=== PATIENT | male | born 1995 | race Caucasian/White ===

== ENCOUNTER 2017-01-05 17:38 | Inpatient (IN) | payer OTHER ==
[2017-01-05 19:35] LABS: Hematocrit 42 % (42-52); Hemoglobin 14.6 g/dl (14.0-18.0); Mean Corpuscular HGB Conc 35 g/dl (31-36); Mean Corpuscular Hemoglobin 29 pg (27-31); Mean Corpuscular Volume 85 fL (80-94); Mean Platelet Volume 9 um3 (7.4-10.4); Red Blood Count 4.97 10^6/ul (4.0-5.4); Red Cell Distribution Width 13 % (10.5-15); White Blood Count 9.3 10^3/ul (3.5-10.8)
[2017-01-05 19:42] LABS: Urine Bilirubin Negative (Negative); Urine Glucose Negative (Negative); Urine Nitrite Negative (Negative)
[2017-01-05 19:45] LABS: ALT 9 U/L (7-52); AST 14 U/L (13-39); Albumin 4.6 g/dL (3.2-5.2); Alkaline Phosphatase 44 U/L (34-104); Anion Gap 4 mmol/L (2-11); BUN/Creatinine Ratio 13.3 (8-20); Blood Urea Nitrogen 12 mg/dL (6-24); CO2 Carbon Dioxide 30 mmol/L (22-32); Calcium 9.3 mg/dL (8.6-10.3); Chloride 105 mmol/L (101-111); EGFR African American 138.4 (>60); EGFR Non-African American 107.6 (>60); Globulin 2.9 g/dL (2-4); Glucose 72 mg/dL (70-100); Sodium 139 mmol/L (133-145); Total Protein 7.5 g/dL (6.4-8.9)
[2017-01-05 19:48] LABS: Acetaminophen < 15 mcg/mL; Alcohol < 10 mg/dL (<10); Salicylate < 2.50 mg/dL (<30)
[2017-01-05 19:49] LABS: Benzodiazepine Urine Screen None Detected (None Detect)
[2017-01-05 20:03] LABS: TSH (Thyroid Stimulating Horm) 1.45 mcIU/mL (0.34-5.60)
[2017-01-05] MEDS ORDERED: LORazepam TAB(*) 1 MG PO ONE (20:59)
--- NOTE | 2017-01-05 21:01 | ED ---
Progress - Progress Note Progress Note: 21:00 01/05/17, received pt in sign out from Dr. Albarran at change of shift, pending MHE. Pt with depression, SI. Pt states he doesn't want to be here, but he came to get help. Asks for his book, "the Gift". Security will get it for pt. Pt reluctantly accepts a pill, Ativan 1mg po, to help him cope while here. 21:25 medically clear for MHE. 0125: Per Joe MH examiner, per Dr. Guaman, pt is to be admitted voluntarily. Hold in Flex unit, pending [facility] admit in am. 0300: care to Dr. Weathers at change of shift. Course/Dx - Course Course Of Treatment: given ativan 1mg po x 1 while still in ED. Calm cooperative while in Flex unit. Per Joe, per Dr. Guaman, admit voluntarily. Awaiting [facility] bed. - Diagnoses Provider Diagnoses: Suicidal ideation, Depression
[2017-01-06] MEDS ORDERED: BuPROPion XL* 150 MG TAB.XL PO ONE (10:32)
[2017-01-06] MEDS ORDERED: Al Hydrox/Mg Hydrox/Simet LIQ* 30 ML UDC PO PRN (16:40)
[2017-01-06] MEDS ORDERED: Acetaminophen TAB* 325 MG PO PRN (16:40)
--- NOTE | 2017-01-06 19:07 | ED ---
Em Echeverria Thomas, scribed for Vitaly Albarran MD on 01/05/17 at 1935 . Psychiatric Complaint - HPI Summary HPI Summary: The pt is a 21 y/o M referred to the ED by Micheline Lawrence NP and c/o depression and SI. These feelings are intermittent. He says he has been depressed for years but has been especially depressed this year. There are no known aggravating factors, alleviating factors, or recent stressors. He c/o excessive sleeping and decreased appetite. He denies HI and prior suicide attempts. He began taking depression medication four weeks ago. - History Of Current Complaint Chief Complaint: EDMentalHealth Time Seen by Provider: 01/05/17 18:18 Hx Obtained From: Patient Onset/Duration: Lasting Weeks - depression, SI for years, Still Present, Worse Since - depression worse in the last year Timing: Intermittent Episode Lasting Character: Depressed Aggravating Factor(s): Nothing Alleviating Factor(s): Nothing Associated Signs And Symptoms: Positive: Sleep Disturbance, Appetite Change Has Suicidal: Reports: Thoughts. Denies: Has Prior Attempt(s) Has Homicidal: Denies: Thoughts PMH/Surg Hx/FS Hx/Imm Hx Previously Healthy: No Endocrine/Hematology History: Denies: Hx Diabetes Psychiatric History: Reports: Hx Depression - Surgical History Surgery Procedure, Year, and Place: dental surgery Infectious Disease History: No Infectious Disease History: Denies: Traveled Outside the [place] in Last 30 Days - Family History Known Family History: Positive: Other - Mental illness - Social History Occupation: Student Lives: Dormitory/Roommates Alcohol Use: Weekly Hx Tobacco Use: Yes Smoking Status (MU): Current Every Day Smoker Review of Systems Negative: Fever Psychological: Other - SI, excessive sleeping, decreased appetite; NEGATIVE: HI Positive: Depressed All Other Systems Reviewed And Are Negative: Yes Physical Exam - Summary Physical Exam Summary: VITAL SIGNS: Reviewed. GENERAL: Patient is a well-developed and nourished male who is lying comfortable in the stretcher. Patient is not in any acute respiratory distress. HEAD AND FACE: No signs of trauma. No ecchymosis, hematomas or skull depressions. No sinus tenderness. EYES: PERRLA, EOMI x 2, No injected conjunctiva, no nystagmus. EARS: Hearing grossly intact. Ear canals and tympanic membranes are within normal limits. MOUTH: Oropharynx within normal limits. NECK: Supple, trachea is midline, no adenopathy, no JVD, no carotid bruit, no c- spine tenderness, neck with full ROM. CHEST: Symmetric, no tenderness at palpation LUNGS: Clear to auscultation bilaterally. No wheezing or crackles. CVS: Regular rate and rhythm, S1 and S2 present, no murmurs or gallops appreciated. ABDOMEN: Soft, non-tender. No signs of distention. No rebound no guarding, and no masses palpated. Bowel sounds are normal. EXTREMITIES: FROM in all major joints, no edema, no cyanosis or clubbing. NEURO: Alert and oriented x 3. No acute neurological deficits. Speech is normal and follows commands. SKIN: Dry and warm PSYCH: He has suicidal ideation. Depressed, quiet. No homicidal thoughts or plan. No signs of psychosis or pressure speech. No tangential speech. Triage Information Reviewed: Yes Vital Signs On Initial Exam: Initial Vitals Temp Pulse Resp BP Pulse Ox 98.1 F 57 20 119/66 99 01/05/17 18:06 01/05/17 18:06 01/05/17 18:06 01/05/17 18:06 01/05/17 18:06 Vital Signs Reviewed: Yes Diagnostics - Vital Signs Vital Signs Temp Pulse Resp BP Pulse Ox 01/05/17 18:06 98.1 F 57 20 119/66 99 - Laboratory Lab Results: Lab Results 01/05/17 01/05/17 01/05/17 Range/Units 18:25 18:25 19:00 WBC (3.5-10.8) 10^3/ul RBC (4.0-5.4) 10^6/ul Hgb (14.0-18.0) g/dl Hct (42-52) % MCV (80-94) fL MCH (27-31) pg MCHC (31-36) g/dl RDW (10.5-15) % Plt Count (150-450) 10^3/ul MPV (7.4-10.4) um3 Neut % (Auto) (38-83) % Lymph % (Auto) (25-47) % [place] % (Auto) (1-9) % Eos % (Auto) (0-6) % Baso % (Auto) (0-2) % Absolute Neuts (auto) (1.5-7.7) 10^3/ul Absolute Lymphs (auto) (1.0-4.8) 10^3/ul Absolute Monos (auto) (0-0.8) 10^3/ul Absolute Eos (auto) (0-0.6) 10^3/ul Absolute Basos (auto) (0-0.2) 10^3/ul Absolute Nucleated RBC 10^3/ul Nucleated RBC % Sodium 139 (133-145) mmol/L Potassium 4.0 (3.5-5.0) mmol/L Chloride 105 (101-111) mmol/L Carbon Dioxide 30 (22-32) mmol/L Anion Gap 4 (2-11) mmol/L BUN 12 (6-24) mg/dL Creatinine 0.90 (0.67-1.17) mg/dL Est GFR ( Amer) 138.4 (>60) Est GFR (Non-Af Amer) 107.6 (>60) BUN/Creatinine Ratio 13.3 (8-20) Glucose 72 (70-100) mg/dL Calcium 9.3 (8.6-10.3) mg/dL Total Bilirubin 0.40 (0.2-1.0) mg/dL AST 14 (13-39) U/L ALT 9 (7-52) U/L Alkaline Phosphatase 44 (34-104) U/L Total Protein 7.5 (6.4-8.9) g/dL Albumin 4.6 (3.2-5.2) g/dL Globulin 2.9 (2-4) g/dL Albumin/Globulin Ratio 1.6 (1-3) TSH 1.45 (0.34-5.60) mcIU/mL Urine Color Yellow Urine Appearance Cloudy Urine pH 7.0 (5-9) Ur Specific [place] 1.013 (1.010-1.030) Urine Protein Negative (Negative) Urine Ketones Negative (Negative) Urine Blood Negative (Negative) Urine Nitrate Negative (Negative) Urine Bilirubin Negative (Negative) Urine Urobilinogen Negative (Negative) Ur Leukocyte Esterase Negative (Negative) Urine Glucose Negative (Negative) Salicylates < 2.50 (<30) mg/dL Urine Opiates Screen None detected (None Detect) Acetaminophen < 15 mcg/mL Ur Barbiturates Screen None detected (None Detect) Ur Phencyclidine Scrn None detected (None Detect) Ur Amphetamines Screen None detected (None Detect) U Benzodiazepines Scrn None detected (None Detect) Urine Cocaine Screen None detected (None Detect) U Cannabinoids Screen Presumptive positive H (None Detect) Serum Alcohol < 10 (<10) mg/dL 01/05/17 Range/Units 19:00 WBC 9.3 (3.5-10.8) 10^3/ul RBC 4.97 (4.0-5.4) 10^6/ul Hgb 14.6 (14.0-18.0) g/dl Hct 42 (42-52) % MCV 85 (80-94) fL MCH 29 (27-31) pg MCHC 35 (31-36) g/dl RDW 13 (10.5-15) % Plt Count 203 (150-450) 10^3/ul MPV 9 (7.4-10.4) um3 Neut % (Auto) 67.5 (38-83) % Lymph % (Auto) 23.8 L (25-47) % [place] % (Auto) 6.9 (1-9) % Eos % (Auto) 1.4 (0-6) % Baso % (Auto) 0.4 (0-2) % Absolute Neuts (auto) 6.3 (1.5-7.7) 10^3/ul Absolute Lymphs (auto) 2.2 (1.0-4.8) 10^3/ul Absolute Monos (auto) 0.6 (0-0.8) 10^3/ul Absolute Eos (auto) 0.1 (0-0.6) 10^3/ul Absolute Basos (auto) 0 (0-0.2) 10^3/ul Absolute Nucleated RBC 0 10^3/ul Nucleated RBC % 0 Sodium (133-145) mmol/L Potassium (3.5-5.0) mmol/L Chloride (101-111) mmol/L Carbon Dioxide (22-32) mmol/L Anion Gap (2-11) mmol/L BUN (6-24) mg/dL Creatinine (0.67-1.17) mg/dL Est GFR ( Amer) (>60) Est GFR (Non-Af Amer) (>60) BUN/Creatinine Ratio (8-20) Glucose (70-100) mg/dL Calcium (8.6-10.3) mg/dL Total Bilirubin (0.2-1.0) mg/dL AST (13-39) U/L ALT (7-52) U/L Alkaline Phosphatase (34-104) U/L Total Protein (6.4-8.9) g/dL Albumin (3.2-5.2) g/dL Globulin (2-4) g/dL Albumin/Globulin Ratio (1-3) TSH (0.34-5.60) mcIU/mL Urine Color Urine Appearance Urine pH (5-9) Ur Specific [place] (1.010-1.030) Urine Protein (Negative) Urine Ketones (Negative) Urine Blood (Negative) Urine Nitrate (Negative) Urine Bilirubin (Negative) Urine Urobilinogen (Negative) Ur Leukocyte Esterase (Negative) Urine Glucose (Negative) Salicylates (<30) mg/dL Urine Opiates Screen (None Detect) Acetaminophen mcg/mL Ur Barbiturates Screen (None Detect) Ur Phencyclidine Scrn (None Detect) Ur Amphetamines Screen (None Detect) U Benzodiazepines Scrn (None Detect) Urine Cocaine Screen (None Detect) U Cannabinoids Screen (None Detect) Serum Alcohol (<10) mg/dL Result Diagrams: 01/05/17 19:00 01/05/17 19:00 Lab Statement: Any lab studies that have been ordered have been reviewed, and results considered in the medical decision making process. Course/Dx - Course Assessment/Plan: The pt is a 21 y/o M referred to the ED by Micheline Lawrence NP and c/o depression and SI. These feelings are intermittent. He says he has been depressed for years but has been especially depressed this year. There are no known aggravating factors, alleviating factors, or recent stressors. He c/o excessive sleeping and decreased appetite. He denies HI and prior suicide attempts. He began taking depression medication four weeks ago. Test results are without significant abnormalities. The patient is medically cleared. The patient is awaiting a mental health examination. - Differential Dx/Clinical Impression Differential Diagnosis/HQI/PQRI: Positive: Anxiety, Depression, Suicidal Ideation Provider Diagnosis: Depressive disorder, unspecified Discharge - Discharge Plan Condition: Fair Disposition: OTHER Discharge Disposition Comment: Sign out at shift change pending MHE and awaiting dispo. The documentation as recorded by the Em dudley Thomas accurately reflects the service I personally performed and the decisions made by me, Vitaly Albarran MD.
--- NOTE | 2017-01-06 19:08 | ED ---
Blaise Echeverria Angela, scribed for Vitaly Albarran MD on 01/06/17 at 1816 . Progress - Progress Note Progress Note: Pt was signed out at shift change, pending disposition. Pt will be admitted per Dr. Villarreal's recommendation in stable condition with a diagnosis of depressive disorder, unspecified. Course/Dx - Diagnoses Provider Diagnoses: Depressive disorder, unspecified The documentation as recorded by the lakshmiibBlaise payan Angela accurately reflects the service I personally performed and the decisions made by , Vitaly Albarran MD.
[2017-01-07] MEDS ORDERED: BuPROPion XL* 150 MG TAB.XL PO SCH (09:00)
[2017-01-07] MEDS: Divalproex DR TAB(*) 250 MG PO SCH (20:13)
--- NOTE | 2017-01-07 20:30 | HP ---
PSYCHIATRIC HISTORY AND PHYSICAL: DATE OF ADMISSION: 01/06/17 JUSTIFICATION FOR ADMISSION: The patient is in need of 24-hour supervision and care secondary to suicidal ideations. CHIEF COMPLAINT: "I think it is a chemical imbalance." HISTORY OF PRESENT ILLNESS: The patient is a 21-year-old single white male, [employer] senior, with a recent diagnosis of depression, who arrived voluntarily following an appointment with his psychiatric nurse practitioner, Micheline Lawrence, who presented with plans to hang himself and just poison or jump off a bridge. He indicated that he does not see a way out of difficulties and feels hopeless. He was irritable with small outbursts of yelling based on his belief that there was nothing that could be done to relieve his depression. The patient feels that he was forced to take an oral dose of Ativan in the emergency room based on his behavior and was somewhat upset about it. I was able to reach his mother whose name is Iraida Caruso and she indicates that for years, she has seen him as going up and down, being depressed at times, but also being apparently hypomanic taking on extra projects, being euphoric, doing impulsive things like hitchhiking around the country. She was concerned about his behavior because they have family friend who was receiving bizarre texts from him all night. When I met with the patient, he does endorse a history of mood instability including irritability, distractibility, indiscreet behaviors, grandiosity, flight of ideas, increased goal directed activities, decreased need for sleep, and overtalkativeness. He states that the suicidal ideations were just exaggerations meant to jog his feelings and make him feel better. He denies any past history of psychosis. PAST PSYCHIATRIC HISTORY: The patient is new to mental health treatment. In October of 2016, he begun seeing a therapist in the community named, Ronen Verdugo. He was then referred to psychiatric nurse practitioner, Micheline Lawrence, who started treating him with Wellbutrin XL 150 mg daily for a diagnosis of depression. His mother does indicate that he had an explosive temperament as a child, but the only therapy he received was through a family therapist for anger management. He has no formal history of violence towards others, although he tends to be irritable and to raise his voice. His family is not aware of any abuse or neglect and the patient denies these. He has no formal history of traumatic brain injury. SUBSTANCE ABUSE HISTORY: The patient smokes cannabis daily and has since high school. He uses this to modulate his moods and also uses large amounts of daily caffeine for the same effect. He denies alcohol use. He has used hallucinogens such as LSD and mushrooms between 15 and 20 times in his life. He does smoke tobacco, a quarter pack a day, which he states is an example of his impulsivity. PAST MEDICAL HISTORY: Noncontributory. CURRENT MEDICATIONS: Include bupropion XL 150 mg p.o. q.a.m. ALLERGIES: He has no known drug allergies. FAMILY HISTORY: He has a maternal uncle with bipolar disorder and anxiety. He also has a paternal uncle with schizophrenia, who was on lithium for a number of years. SOCIAL HISTORY: The patient was born and raised in [place] to an intact family of which he is the youngest of 3 children. He has an older sister and an older brother. Currently, he is a senior at [employer] majoring in [employer] where he states his grades are adequate. He is currently single, heterosexual, not sexually active. He has no history of sexually transmitted diseases. He is a full- time student, who is financially dependent on his parents. He has no formal legal history. No history of service. Recreationally, he enjoys playing music on the piano. He is spiritual but only during his "up phases." REVIEW OF SYSTEMS: The patient denies double vision or headache. He denies abdominal pain, nausea, vomiting, diarrhea, or constipation. He denies difficulty breathing, chest pain, shortness of breath, cough, or sore throat. He denies difficulty ambulating, enlarged lymph nodes, changes in weight. PHYSICAL EXAMINATION VITAL SIGNS: Blood pressure 118/67, heart rate 47, respiratory rate 16, temperature is 97.7 degrees Fahrenheit, and oxygen saturations are 100% on room air. HEENT: Head is normocephalic, atraumatic. NECK: Supple. CHEST: Clear to auscultation bilaterally. CARDIAC: Reveals normal heart sounds. ABDOMEN: Soft and nontender. MUSCULOSKELETAL: Reveals no sign of edema. NEUROLOGICAL: He is grossly intact with no focal deficits. MENTAL STATUS EXAMINATION: The patient is a young, tall, slender, white male, slightly bearded, wearing eye glasses. He is dressed in a somewhat unusual style with bright colorful hoodie. He has good eye contact, somewhat pressured speech. He is calm, cooperative with some weakness in boundaries as evidenced by his playing the piano at times during our interview in the comfort room. Mood appears to be irritable with a constricted affect. Thought process is linear and goal directed. Thought content is significant for his feeling that things will not improve. He denies suicidal or homicidal ideations currently. He denies auditory or visual hallucinations. Insight and judgment are limited given his preference to be treated on an outpatient basis. Cognitively, he is awake and alert with what would appear to be an average intellect. LABORATORY DATA: As follows: CBC, CMP, and urinalysis are all within normal limits. Urine drug screen is positive only for cannabinoids. DIAGNOSES: As follows: [place] I: Bipolar disorder, type 1, most recent episode depressed, severe without psychotic features; cannabis use disorder. [place] II: Deferred. [place] III : None. [place] IV: Moderate academic stressors. [place] V: At this time is 35. IMPRESSION: The patient is a 21-year-old single white male, [employer] senior, with a recent diagnosis of depression, who arrived on the advice of his psychiatrist nurse practitioner after he made suicidal statements in her office , specifically he had made statements regarding jumping off a bridge, poisoning himself, or overdosing on medications. I do feel that his history is significant for bipolar disorder and I think discontinuation of antidepressants would be warranted with consideration for mood stabilizer therapy. PLAN: The patient is admitted to the adult behavioral health unit where he was placed on q.15-minute checks for his own safety. We will discontinue Wellbutrin and replace it with a trial of Depakote 250 mg p.o. b.i.d. After 2-1 /2 days, we can check a level and consider increasing the dose if necessary. We will try to hook him up with new providers as he is telling me that he no longer wants to see his current therapist or psychiatric nurse practitioner. While he is here, he is certainly encouraged to avail himself of all milieu activities including individual and group psychotherapies. [id number]/[facility] #: [id number] REGI
[2017-01-08] MEDS: Divalproex DR TAB(*) 250 MG PO SCH (08:29)
--- NOTE | 2017-01-08 11:59 | PN ---
MHU: Group Therapy Note - Service Type Service Type: 63229 Group Psychotherapy - Cognitive Behavioral Group Therapy ( CBT):Patient was attentive and participatory in CBT programming this morning, and remained in good behavioral control. Patient expressed positive insights regarding relevant treatment interventions and goals.
--- NOTE | 2017-01-08 17:39 | PN ---
Subjective - Subjective Service Type: 20157 Hosp care 15 min low complexity Subjective: Patient denies SI. No side effects from the introduction of Depakote. Patient insists that his suicidal ideations and statements were only to shock himself out of how he was feeling. Less depressed today. Slept well. Hopeful for d/c to home Wednesday and wants to finish his and then get his degree after spring. Agreeable with outpatient treatment after discharge. Ambivalent about abstaining from cannabis. Objective - Appearance Appearance: Thin Framed Dysmorphic Features: No Hygiene: Normal Grooming: Fairly Well Kept - Behavior Psychomotor Activities: Normal Exhibits Abnormal Movement: No - Attitude and Relatedness Attitude and Relatedness: Cooperative Eye Contact: Fair - Speech Quality: Unpressured Latencies: Normal Quantity: Appropriate - Mood Patient's Decription of Mood: "Okay" - Affect Observed Affect: Expansive Affect Consistent with: Euthymia - Thought Process Patient's Thought Process: Coherent Thought Content: No Passive Wish, No Suicidal Planning, No Homicidal Ideation, No Paranoid Ideation - Sensorium Experiencing Hallucinations: No, Sensorium is Clear Type of Hallucinations: Visual: No, Auditory: No, Command: No - Level of Consciousness Level of Consciousness: Alert Orientation: Yes Intact, Yes Orientated to Time, Yes Orientated to Place, Yes Orientated to Person - Impulse Control Impulse Control: Tenuous - Insight and Judgement Insight and Judgement: Fair - Group Participation Particating in Group Activities: Yes - Medication Management Medication Management Adherence: Yes Assessment - Assessment Merits Inpatient Hospitalization: For Immediate Safety, For Stabilization Inpatient DSM-IV Dx: Bipolar Depression, severe without psychotic features Clinical Impression: 21 y.o. 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 Plan - Plan Treatment Plan: Name: SARI MCINTYRE Birthdate: 1995 [id number] We have discontinued bupropion XL in favor of a trial of Depakote 250mg PO BID. Will increase dose to 250mg PO qam and 500mg PO qhs. VPA level on Wednesday. Continue to treat on inpatient basis. Continued Medication Management: Start Medication Medications: Current Medications Acetaminophen (Tylenol Tab*) 650 mg PO Q4H PRN PRN Reason: for pain; or Temp >101 F Al Hydrox/Mg Hydrox/Simethicone (Maalox Plus*) 30 ml PO Q4H PRN PRN Reason: INDIGESTION Divalproex Sodium (Depakote Dr Tab(*)) 500 mg PO BEDTIME MARILU Divalproex Sodium (Depakote Dr Tab(*)) 250 mg PO DAILY MARILU - Discharge Plan Discharge Plan: Inpatient Hospitalization
[2017-01-08] MEDS: Divalproex DR TAB(*) 500 MG PO SCH (20:51)
[2017-01-09] MEDS: Divalproex DR TAB(*) 250 MG PO SCH (08:44)
[2017-01-09] MEDS: Divalproex DR TAB(*) 500 MG PO SCH (20:47)
[2017-01-10] MEDS: Divalproex DR TAB(*) 250 MG PO SCH (09:17)
--- NOTE | 2017-01-10 11:01 | PN ---
Subjective - Subjective Service Type: 77336 Hosp care 15 min low complexity Subjective: Dennis continues to deny SI and is upset about coming to the hospital in the first place. "I feel like from now on I'm going to have to watch what I say, because if I'm at all honest they're going to call the police and have me brought back here. I don't want to come here ever again." The patient complains of boredom and lack of meaningful therapeutic experiences on the unit. He also complains of mild sedation from Depakote and wonders if he can take it all at night. VPA level is pending for the AM. Objective - Appearance Appearance: Well Developed/Nourished, Thin Framed Dysmorphic Features: No Hygiene: Normal Grooming: Well Kept - Behavior Psychomotor Activities: Normal Exhibits Abnormal Movement: No - Attitude and Relatedness Attitude and Relatedness: Dismissive Eye Contact: Good - Speech Quality: Unpressured Latencies: Normal Quantity: Appropriate - Mood Patient's Decription of Mood: "Fine" - Affect Observed Affect: Fair Affect Consistent with: Euthymia - Thought Process Patient's Thought Process: Coherent Thought Content: No Passive Wish, No Suicidal Planning, No Homicidal Ideation, No Paranoid Ideation - Sensorium Experiencing Hallucinations: No, Sensorium is Clear Type of Hallucinations: Visual: No, Auditory: No, Command: No - Level of Consciousness Level of Consciousness: Alert Orientation: Yes Intact, Yes Orientated to Time, Yes Orientated to Place, Yes Orientated to Person - Impulse Control Impulse Control: Intact - Insight and Judgement Insight and Judgement: Good - Group Participation Particating in Group Activities: Yes - Medication Management Medication Management Adherence: Yes Assessment - Assessment Merits Inpatient Hospitalization: Consolidate Improvements, Pending Safe DC Plan Inpatient DSM-IV Dx: Bipolar Depression, severe without psychotic features Clinical Impression: 21 y.o. 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 with a history of episodic mood instability arrives voluntarily from his outpatient psychiatric nurse practitioner's office due to depressed mood and suicidal ideations with multiple stated plans. Plan - Plan Treatment Plan: Name: DENNIS MCINTYRE Birthdate: 1995 [id number] We have discontinued bupropion XL in favor of a trial of Depakote 250mg PO qam and 500mg PO qhs. Will change dose to 750mg PO qhs to minimize daytome sedation. VPA level tomorrow followed by likely discharge to home. Continued Medication Management: Start Medication Medications: Current Medications Acetaminophen (Tylenol Tab*) 650 mg PO Q4H PRN PRN Reason: for pain; or Temp >101 F Al Hydrox/Mg Hydrox/Simethicone (Maalox Plus*) 30 ml PO Q4H PRN PRN Reason: INDIGESTION Divalproex Sodium (Depakote Dr Tab(*)) 500 mg PO BEDTIME MARILU Last Admin: 01/09/17 20:47 Dose: 500 mg Divalproex Sodium (Depakote Dr Tab(*)) 250 mg PO BEDTIME MARILU - Discharge Plan Discharge Plan: Outpatient Follow Up Outpatient Program: Micheline YU
[2017-01-10] MEDS: Divalproex DR TAB(*) 500 MG PO SCH (20:31)
[2017-01-11 08:37] VITALS: BP 115/95
[2017-01-11] MEDS ORDERED: Divalproex DR TAB(*) 250 MG PO SCH (21:00)
--- NOTE | 2017-01-12 03:36 | DS ---
DISCHARGE SUMMARY: DATE OF ADMISSION: 01/06/17 DATE OF DISCHARGE: 01/11/17 DISCHARGE DIAGNOSES: Are as follows: Alex I: Bipolar disorder type 1; most recent episode depressed, severe without psychotic features; cannabis use disorder. Alex II: Deferred. Alex III: None. Alex IV: Moderate academic stressors. Alex V: At the time of admission was 36 and at the time of discharge is 61. CONDITION AT THE TIME OF DISCHARGE: Improved. The patient's affect is full. His mood is euthymic. He has been present in the milieu setting, socializing with peers, playing his guitar and entertai darlyn others. He has been going to groups. 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 I have spoken with his parents, his Father, Ab Jacobsen, and his mother, Iraida hall, who indicate that he appears back to his baseline and they feel good about the discharge plan and in fact they are willing to come this afternoon to pick him up to bring him back to college. T he patient has been safe on all checks. He has denied suicidal ideations since the time of his [facility] appointment and he is willing to follow up with his outpatient psychiatric provider who is psychi atric nurse practitioner, Micheline Lawrence. MENTAL STATUS EXAMINATION: The patient is a tall, young, slender white male, slightly bearded, wear ing eye glasses. He is dressed in a somewhat unusual style with a bright colorful hoodie. Makes go od eye contact. Speech has a normal rate, tone, and volume. He is calm, cooperative. Mood is euth ymic with full affect. Thought process is linear and goal directed. Thought content is significant for his desire to leave the hospital and return to college. He denied suicidal or homicidal ideatio ns. He denies auditory or visual hallucinations. Insight and judgement are fair given his willingn ess to follow up with outpatient mental health treatment. Cognitively, he is awake and alert with w hat would appear to be an average intellect. DISCHARGE INSTRUCTIONS: To the patient are as follows: A. Medications: He is on Depakote 750 mg p.o. q.h.s. B. Diet is regular. C. Activities: As tolerated. The patient is a nonsmoker. There are no laboratory or diagnostic s tudies pending at the time of discharge. D. Followup care: The patient will follow up with outpatient psychiatric nurse practitioner, Yoana Lawrence within 1 week of discharge. HOSPITAL COURSE: Part A: Reason for hospitalization: The patient is a 21-year-old single white [facility] [employer] [facility], [employer] Senior with a recent diagnosis of depression, who arrived voluntarily following an appointment with his psychiatric nurse practitioner, Micheline Lawrence, who presented with plans to hang himself or poison himself or jump off of bridge. He indicated that he does not see a way out of hi s difficulties and feels hopeless. He was irritable with small outburst of yelling based on his bel ief that there was nothing that could be done to relieve his depression. The patient feels that he was forced to take an oral dose of Ativan in the emergency room based on his behavior and was somewh at upset about that. I was able to reach his mother whose name is Iraida Caruso, and she indicated th at for years she has seen him as going up and down in terms of his mood being depressed at times, bu t also being apparently hypomanic, taking on extra projects, being euphoric, doing impulsive things such as hitchhiking around the country. She was concerned about his behavior because they have a fa ronnie friend who was receiving bizarre texts from him at strange hours. When I met with the patient, he did endorse a history of mood instability including irritability, distractibility, indiscreet be haviors, grandiosity, flight of ideas, increased goal directed activities, decreased need for sleep, over talkativeness. He stated that the suicidal ideations were "just exaggerations" meant to jog h is feelings and make him feel better. He denied any past history of psychosis. Part B: Psychiatric treatment rendered: The patient was admitted to the [facility] where he was placed on q.15 minute checks for his own safety. I was able to reach his mother who gave me further collateral information as well as Micheline Lawrence, his outpatient psychiatric nurse pr actitioner who similarly filled me in on the details, which led to this hospitalization. We were ab le to determine that his diagnosis was bipolar disorder and we opted with the consent of the patient to pursue a trial of Depakote initially at 250 mg twice daily, then 250 in the morning and 500 at n ight. The patient did tolerate this well; however, he had some complaints of daytime sedation and t herefore, we moved his dose to receiving all 750 mg at nighttime. On the morning of discharge, his valproic acid level was deemed to be therapeutic at 66. At times, Dennis seemed to be slightly argume ntative and argued against the course of nature of this hospitalization, feeling that even though he arrived here voluntarily, if he had not, the police would have brought him in. He seemed to take i ssue with what he perceived as coercion in terms of coming to inpatient treatment. In spite of this , he did accept medications and did seem to understand the rationale of his diagnosis as well as his treatment plan. He was cooperative in the milieu, went to groups, was often seeing playing guitar and socializing with peers. It is notable that we tried to refer him to the enterprise architect manager at [facility]; however, he declined this saying that he would speak to his professors himself. He also declined followup referral to a new psychotherapist indicating that he felt that psychotherapy would have limited benefit to him. The patient's affect did improve during this hospitalization and he i s appropriately requesting discharge at this time. We feel that there would be limited utility in c ontinued inpatient care and I have spoken with both the patient and Micheline Lawrence and they are mutual ly in favor of continuing their treatment relationship at this time. The patient is denying suicida l ideations and we feel that he is safe for discharge at this time. [id number]/[facility] #: [id number]
== END 2017-01-11 13:00 | disposition home or self-care (01) | DRG 753 ==
LOC: ED 17:38 → BSU 01-06 18:06
PROVIDERS: ADMIT Psychiatry & Neurology Psychiatry; ATTEND Psychiatry & Neurology Psychiatry
DX: F31.4 Bipolar disorder, current episode depressed, severe, without psychotic features (principal); R45.851 Suicidal ideations; F12.10 Cannabis abuse, uncomplicated; Z79.899 Other long term (current) drug therapy; Z81.8 Family history of other mental and behavioral disorders
CPT/HCPCS: 36415; 80053; 80164; 80307; 80320; 80329; 81003; 84443; 85025; 90853; 99222; 99231; 99238; A9270-GY; G0480

== ENCOUNTER 2017-05-04 13:22 | Emergency (ER) | payer OTHER ==
--- NOTE | 2017-05-04 15:44 | ED ---
Throat Pain/Nasal Congestion - HPI Summary HPI Summary: 22-year-old male presents with sore throat for past day. His girlfriend diagnosis strep. He admits to occasional fevers. He admits to dry cough. He denies any nausea or vomiting. He denies any abdominal pain. He hasn't taken anything for his pain. He has a history of strep. He denies any muscle aches. - History of Current Complaint Chief Complaint: EDThroatPain Time Seen by Provider: 05/04/17 15:43 - Allergies/Home Medications Allergies/Adverse Reactions: Allergies Allergy/AdvReac Type Severity Reaction Status Date / Time MS No Known Drug Allergy Allergy n/a Verified 01/07/17 11:13 [No Known Drug Allergy] PMH/Surg Hx/FS Hx/Imm Hx Endocrine/Hematology History: Denies: Hx Diabetes Cardiovascular History: Denies: Hx Hypertension Sensory History: Reports: Hx Contacts or Glasses - Nearsighted and stigmatism Denies: Hx Hearing Aid Opthamlomology History: Reports: Hx Contacts or Glasses - Nearsighted and stigmatism Psychiatric History: Reports: Hx Depression, Hx Community Mental Health Tx, Hx Bipolar Disorder, Hx Suicide Attempt, Hx Substance Abuse - Canabis, Acid - per pt - Surgical History Surgery Procedure, Year, and Place: dental surgery Infectious Disease History: No Infectious Disease History: Denies: Traveled Outside the [place] in Last 30 Days - Family History Known Family History: Positive: Other - Mental illness - Social History Alcohol Use: Rare Substance Use Type: Reports: Excessive Caffeine, Marijuana, Other Substance Use Comment - Amount & Last Used: "coffee and canabis daily" and "a lot of acid over a few years" Hx Tobacco Use: Yes Smoking Status (MU): Light Every Day Tobacco Smoker Type: Cigarettes Length of Time of Smoking/Using Tobacco: 6 months Have You Smoked in the Last Year: Yes Review of Systems Negative: Fever Positive: Sore Throat Negative: Chest Pain Positive: Cough. Negative: Shortness Of Breath All Other Systems Reviewed And Are Negative: Yes Physical Exam Triage Information Reviewed: Yes Vital Signs On Initial Exam: Initial Vitals Temp Pulse Resp BP Pulse Ox 98.3 F 59 15 134/59 100 05/04/17 13:44 05/04/17 13:44 05/04/17 13:44 05/04/17 13:44 05/04/17 13:44 Vital Signs Reviewed: Yes Appearance: Positive: Well-Appearing Skin: Positive: Warm, Dry Head/Face: Positive: Normal Head/Face Inspection Eyes: Positive: Normal, EOMI, SADIQ, Conjunctiva Clear ENT: Positive: Pharyngeal erythema, Tonsillar swelling, Uvula midline, Other - soft palate symmetric. Negative: Tonsillar exudate, Trismus, Muffled voice Respiratory/Lung Sounds: Positive: Clear to Auscultation, Breath Sounds Present Cardiovascular: Positive: Normal, RRR Abdomen Description: Positive: Nontender, Soft Bowel Sounds: Positive: Present Musculoskeletal: Positive: Normal Neurological: Positive: Normal Psychiatric: Positive: Normal Diagnostics - Vital Signs Vital Signs Temp Pulse Resp BP Pulse Ox 05/04/17 14:52 98.6 F 60 20 122/65 82 05/04/17 13:44 98.3 F 59 15 134/59 100 - Laboratory Lab Results: Lab Results 05/04/17 Range/Units 15:16 Group A Strep Rapid Positive H (Negative) Lab Statement: Any lab studies that have been ordered have been reviewed, and results considered in the medical decision making process. EENT Course/Dx - Course Course Of Treatment: 22-year-old male presents with sore throat for past day. His girlfriend diagnosis strep. He admits to occasional fevers. He admits to dry cough. He denies any nausea or vomiting. He denies any abdominal pain. He hasn't taken anything for his pain. He has a history of strep. He denies any muscle aches. Soft palate symmetric pharynx erythematous. Strep positive. Will treat with amoxicillin. Patient understands and agrees to plan. - Differential Diagnoses Differential Diagnoses: Pharyngitis, Tonsilitis, URI/Bronchitis - Diagnoses Provider Diagnoses: Streptococcal sore throat Discharge - Discharge Plan Condition: Good Disposition: HOME Prescriptions: Amoxicillin PO (*) [Amoxicillin 500 MG CAP*] 500 mg PO Q12H #19 cap Patient Education Materials: Strep Throat (ED) [facility]] - Additional Instructions: Take antibiotic twice a day for 10 days Take Tylenol or ibuprofen for pain/fever every 6 hours Can gargle salt water, use cough drops or products such as cloraseptic spray for pain Return to ED if develop difficulty breathing or unable to manage secretions, any new or worsening symptoms
[2017-05-04] MEDS ORDERED: Amoxicillin/Clavulanate TAB* 500 MG PO ONE (15:46)
[2017-05-04 15:49] VITALS: BP 140/69
== END 2017-05-04 15:46 | disposition home or self-care (01) ==
LOC: ED 13:22
DX: J02.0 Streptococcal pharyngitis (principal); F17.210 Nicotine dependence, cigarettes, uncomplicated; F32.9 Major depressive disorder, single episode, unspecified
CPT/HCPCS: 87651; 99282

== ENCOUNTER 2017-08-16 20:13 | Emergency (ER) | payer SELFPAY ==
[2017-08-16] MEDS ORDERED: Bacitracin OINTMENT* 0.5% 0.5 oz TUBE TOPICAL ONE (20:48)
[2017-08-16] MEDS ORDERED: Ibuprofen TAB* 600 MG PO ONE (20:48)
--- NOTE | 2017-08-16 21:01 | ED ---
Skin Complaint - HPI Summary HPI Summary: Complains of redness to back of right hand and right middle finger after point hot water at work today at [employer]. Denies loss of sensation or function in right hand. - History of Current Complaint Chief Complaint: EDExtremityUpper Time Seen by Provider: 08/16/17 20:32 Stated Complaint: BURN ON RT HAND Hx Obtained From: Patient Pain Intensity: 6 - Additional Pertinent History Primary Care Physician: [id number] - Allergy/Home Medications Allergies/Adverse Reactions: Allergies Allergy/AdvReac Type Severity Reaction Status Date / Time No Known Allergies Allergy Verified 08/16/17 20:19 PMH/Surg Hx/FS Hx/Imm Hx Endocrine/Hematology History: Denies: Hx Diabetes Cardiovascular History: Denies: Hx Hypertension Sensory History: Reports: Hx Contacts or Glasses - Nearsighted and stigmatism Denies: Hx Hearing Aid Opthamlomology History: Reports: Hx Contacts or Glasses - Nearsighted and stigmatism Psychiatric History: Reports: Hx Depression, Hx Community Mental Health Tx, Hx Bipolar Disorder, Hx Suicide Attempt, Hx Substance Abuse - Canabis, Acid - per pt - Surgical History Surgery Procedure, Year, and Place: dental surgery Infectious Disease History: No Infectious Disease History: Denies: Traveled Outside the [place] in Last 30 Days - Family History Known Family History: Positive: Other - Mental illness - Social History Alcohol Use: Rare Substance Use Type: Reports: Excessive Caffeine, Marijuana, Other Substance Use Comment - Amount & Last Used: "coffee and canabis daily" and "a lot of acid over a few years" Hx Tobacco Use: Yes Smoking Status (MU): Light Every Day Tobacco Smoker Type: Cigarettes Length of Time of Smoking/Using Tobacco: 6 months Have You Smoked in the Last Year: Yes Review of Systems Constitutional: Negative Eyes: Negative ENT: Negative Cardiovascular: Negative Respiratory: Negative Gastrointestinal: Negative Genitourinary: Negative Musculoskeletal: Negative Skin: Negative Neurological: Negative Psychological: Normal All Other Systems Reviewed And Are Negative: Yes Physical Exam - Summary Physical Exam Summary: Redness to back of right hand and back of right third digit. Full range of motion in all joints of fingers of right hand and wrist. Very mild swelling. No blistering or discharge. Triage Information Reviewed: Yes Vital Signs On Initial Exam: Initial Vitals Temp Pulse Resp BP Pulse Ox 98.4 F 53 18 153/96 99 08/16/17 20:15 08/16/17 20:15 08/16/17 20:15 08/16/17 20:15 08/16/17 20:15 Vital Signs Reviewed: Yes Appearance: Positive: Well-Appearing Skin: Positive: Warm Head/Face: Positive: Normal Head/Face Inspection Eyes: Positive: Normal Neck: Positive: Supple Respiratory/Lung Sounds: Positive: Clear to Auscultation Cardiovascular: Positive: Normal Abdomen Description: Positive: Nontender Musculoskeletal: Positive: Normal Neurological: Positive: Normal Psychiatric: Positive: Normal AVPU Assessment: Alert - Caren Coma Scale Best Eye Response: 4 - Spontaneous Best Motor Response: 6 - Obeys Commands Best Verbal Response: 5 - Oriented Coma Scale Total: 15 Diagnostics - Vital Signs Vital Signs Temp Pulse Resp BP Pulse Ox 08/16/17 20:15 98.4 F 53 18 153/96 99 - Laboratory Lab Statement: Any lab studies that have been ordered have been reviewed, and results considered in the medical decision making process. Course/Dx - Course Course Of Treatment: Complains of redness to middle finger of right hand after pouring hot water on his hand at work. Denies loss of sensation or function. PMS intact on right hand. No blistering or discharge. Bacitracin applied. Ibuprofen for pain. continue same - Diagnoses Provider Diagnoses: First degree burn of back of right hand Discharge - Sign-Out/Discharge Documenting (check all that apply): Discharge/Admit/Transfer - Discharge Plan Condition: Stable Disposition: HOME Patient Education Materials: Superficial Burn (ED) Referrals: No Primary Care Phys,[facility] [Primary Care Provider] - Additional Instructions: Apply lotion, olive oil or aloe vera to area of redness. Follow-up with primary care. Return to the ED for any new or worsening symptoms - Billing Disposition and Condition Condition: STABLE Disposition: HOME
[2017-08-16 21:37] VITALS: BP 142/78
== END 2017-08-16 21:36 | disposition home or self-care (01) ==
LOC: ED 20:13
DX: T23.161A Burn of first degree of back of right hand, initial encounter (principal); X11.8XXA Contact with other hot tap-water, initial encounter; Y92.511 Restaurant or cafe as the place of occurrence of the external cause; F17.210 Nicotine dependence, cigarettes, uncomplicated
CPT/HCPCS: 99282; A9270-GY